=== PATIENT | male | born 1975 | race Caucasian/White ===

== ENCOUNTER 2017-02-21 15:13 | Emergency (ER) | payer OTHER ==
[~2017-02-21] VITALS: Ht 180.3 cm; Wt 115.4 kg
[2017-02-21 15:32] LABS: MCH 29.7 PG (29.0-34.0); MCHC 34.5 G/DL (30.0-36.0); MEAN PLAT.VOLUME 9.8 uM^3 (9.0-12.4); PLATELET COUNT 290 K/uL (156-360); RBC DIS.WIDTH-CV 13.1 % (11.8-14.6); RBC DIS.WIDTH-SD 40.8 % (39-53); RED BLOOD COUNT 4.65 M/uL (4.00-5.50); WHITE BLOOD COUNT 11.3 K/uL (4.1-10.2)
[2017-02-21 15:34] LABS: ADD MIUA? YES; BILIRUBIN NEGATIVE; BLOOD SMALL; COLOR YELLOW ((YELLOW)); GLUCOSE (STRIP) NEGATIVE; KETONES NEGATIVE; LEUKOCYTES NEGATIVE; NITRITE NEGATIVE; PROTEIN (STRIP) NEGATIVE; UROBILINOGEN 0.2 MG/DL (0.2-1.0)
[2017-02-21 15:42] LABS: BACTERIA RARE /HPF; EPITHELIAL CELLS RARE /HPF; MUCUS TRACE /LPF; RED BLOOD CELLS 0-5 /HPF (0-5); UCUL ADDED? NO; WHITE BLOOD CELLS 0-5 /HPF (0-5)
[2017-02-21 15:44] LABS: CHLORIDE 102 mEq/L (99-109); POTASSIUM 4.1 mEq/L (3.7-5.4); SODIUM 138 mEq/L (136-147)
[2017-02-21 15:46] LABS: GLUCOSE 112 mg/dL (70-99)
[2017-02-21 15:47] LABS: ANION GAP 10 MEQ/L (2-14)
[2017-02-21 15:48] LABS: TOTAL BILIRUBIN 0.4 mg/dL (0.0-1.0)
[2017-02-21 15:49] LABS: ALKALINE PHOSPHATASE 77 IU/L (3-129)
[2017-02-21 15:50] LABS: GFR ESTIMATE (CALCULATED) > 59 mL/min/
[2017-02-21 15:51] LABS: UREA NITROGEN (BUN) 7 mg/dL (9-23)
[2017-02-21 15:53] LABS: LIPASE 12 U/L (1.0-51.0)
[2017-02-21] MEDS ORDERED: ZOFRAN ODT4 MG PO (19:25)
[2017-02-21] MEDS ORDERED: BENTYL20 MG PO (19:25)
[2017-02-21 19:40] VITALS: BP 140/80
== END 2017-02-21 19:42 | disposition home or self-care (01) ==
LOC: EME 15:13
DX: K29.70 Gastritis, unspecified, without bleeding (principal); I10 Essential (primary) hypertension
CPT/HCPCS: 76705; 80053; 81003; 83690; 85027; 93005; 99281; 99285; J7030